=== PATIENT | male | born 2000 | race Caucasian/White ===

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

== ENCOUNTER 2019-07-15 00:50 | Emergency (ER) | payer OTHER ==
[~2019-07-15] VITALS: Ht 177.8 cm; Wt 71.7 kg
[~2019-07-15 00:50] MED LIST: CEFUROXIME500 MG PO; INTESTINEX680 M1 PO
== END 2019-07-15 11:06 | disposition home or self-care (01) ==
LOC: ER 00:50
DX: K52.9 Noninfective gastroenteritis and colitis, unspecified (principal)

== ENCOUNTER 2019-10-09 19:02 | Emergency (ER) | payer OTHER ==
[~2019-10-09] VITALS: Ht 177.8 cm; Wt 68.9 kg
[2019-10-10] MEDS ORDERED: DOLOGESIC 500-1 EACH PO (01:21)
[2019-10-10] MEDS ORDERED: ZYNCOF 20-400120 ML PO (01:21)
== END 2019-10-10 00:03 | disposition home or self-care (01) ==
LOC: ER 19:02
DX: B34.9 Viral infection, unspecified (principal)

== ENCOUNTER → 2019-10-11 | Emergency (ER) | payer OTHER ==
[~2019-10-11] VITALS: Ht 177.8 cm; Wt 71.7 kg
[~2019-10-11] MED LIST changes: +DOLOGESIC 500-1 EACH PO; +ZYNCOF 20-400120 ML PO
== END | disposition home or self-care (01) ==
LOC: ER 22:17
DX: J03.80 Acute tonsillitis due to other specified organisms (principal)

== ENCOUNTER 2019-12-09 21:59 | Emergency (ER) | payer OTHER ==
[~2019-12-09] VITALS: Ht 177.8 cm; Wt 72.6 kg
[2019-12-10] MEDS ORDERED: KETO10TA2 PO (05:40)
[2019-12-10] MEDS ORDERED: CIPRO500 MG PO (05:40)
== END 2019-12-10 05:49 | disposition home or self-care (01) ==
LOC: ER 21:59
DX: M54.5 Low back pain (principal)

== ENCOUNTER → 2021-10-12 | Outpatient (CLI) | payer OTHER ==
[~2021-10-12] MED LIST changes: +CIPRO500 MG PO; +KETO10TA2 PO
== END | disposition home or self-care (01) ==
LOC: PPH VACUNA
PROVIDERS: ATTEND Emergency Medicine Pediatric Emergency Medicine
DX: Z23 Encounter for immunization (principal)